=== PATIENT | female | born 1960 | race Caucasian/White ===

== ENCOUNTER → 2024-03-21 08:44 | Outpatient (REF) | payer OTHER, SELFPAY | LOC: WDC 08:44 | PROVIDERS: ATTENDING PHYSICIAN Emergency Medicine | DX: Z12.31 Encounter for screening mammogram for malignant neoplasm of breast (principal) | CPT/HCPCS: 77063; 77067 ==

== ENCOUNTER → 2025-01-13 07:58 | Outpatient (REF) | payer OTHER, SELFPAY | LOC: RAD 07:58 | PROVIDERS: ATTENDING PHYSICIAN Physician Assistant Medical | DX: L81.9 Disorder of pigmentation, unspecified (principal) | CPT/HCPCS: 93970 ==

== ENCOUNTER → 2025-02-11 15:07 | Outpatient (REF) | payer OTHER, SELFPAY | LOC: MRI 15:07 | PROVIDERS: ATTENDING PHYSICIAN Specialist; FAMILY PHYSICIAN Physician Assistant Medical | DX: M25.551 Pain in right hip (principal) | CPT/HCPCS: 73721 ==

== ENCOUNTER → 2025-02-25 10:10 | Outpatient (REF) | payer OTHER, SELFPAY | LOC: WDC 10:10 | PROVIDERS: ATTENDING PHYSICIAN Obstetrics & Gynecology; FAMILY PHYSICIAN Physician Assistant Medical | DX: N64.59 Other signs and symptoms in breast (principal) | CPT/HCPCS: 76642; 77063; 77067 ==